=== PATIENT | male | born 1970 | race Caucasian/White ===

== ENCOUNTER 2017-01-28 13:51 | Observation (INO) | payer BC ==
[~2017-01-28] VITALS: Ht 188 cm; Wt 80.6 kg
[~2017-01-28 13:51] MED LIST: MOTRIN600 MG PO; ZOFRAN ODT4 MG PO
[2017-01-28 14:43] LABS: BASOPHIL COUNT 0.1 K/uL (0-0.1); EOSINOPHIL (%) 2.5 % (0-5); EOSINOPHIL COUNT 0.2 K/uL (0-0.3); HEMATOCRIT 42.9 % (38.0-50.0); IMMATURE GRANULOCYTE (%) 0.3 % (0.0-0.7); INSTRUMENT ABS NEUTROPHIL CT 5.4 K/uL; LYMPHOCYTE COUNT 1.6 K/uL (1.0-2.8); MCH 31.5 PG (29.0-34.0); MCHC 33.6 G/DL (30.0-36.0); MCV 93.9 FL (86-99); MEAN PLAT.VOLUME 9.6 uM^3 (9.0-12.4); MONOCYTE (%) 6.7 % (3-12); MONOCYTE COUNT 0.5 K/uL (0-0.8); NEUTROPHIL (%) 68.9 % (45-76); NEUTROPHIL COUNT 5.4 K/uL (1.8-6.4); PLATELET COUNT 216 K/uL (156-360); RBC DIS.WIDTH-CV 13.1 % (11.8-14.6); RBC DIS.WIDTH-SD 44.9 % (39-53); RED BLOOD COUNT 4.57 M/uL (4.00-5.50); WHITE BLOOD COUNT 7.9 K/uL (4.1-10.2)
[2017-01-28 15:02] LABS: CHLORIDE 108 mEq/L (99-109); POTASSIUM 4.1 mEq/L (3.7-5.4); SODIUM 139 mEq/L (136-147)
[2017-01-28 15:04] LABS: GLUCOSE 80 mg/dL (70-99); TROP-I INTERPRETATION NEGATIVE; TROPONIN-I < 0.01 ng/mL (0.0-0.30)
[2017-01-28 15:06] LABS: ANION GAP 9 MEQ/L (2-14)
[2017-01-28 15:08] LABS: GFR ESTIMATE (CALCULATED) > 59 mL/min/
[2017-01-28 15:09] LABS: UREA NITROGEN (BUN) 8 mg/dL (9-23)
[2017-01-28 20:34] VITALS: BP 130/70
[2017-01-28 21:05] LABS: TROP-I INTERPRETATION NEGATIVE; TROPONIN-I < 0.01 ng/mL (0.0-0.30)
[2017-01-28 23:36] VITALS: BP 108/72
[2017-01-29 00:46] LABS: ALKALINE PHOSPHATASE 65 IU/L (3-129); DIRECT BILIRUBIN 0.1 mg/dL (0.0-0.3); LIPASE 717 U/L (1.0-51.0); TOTAL BILIRUBIN 0.5 MG/DL (0.0-1.0)
[2017-01-29 03:33] VITALS: BP 106/66
[2017-01-29 04:21] LABS: D-DIMER ELISA < 150.00 ng/mLDDU (<230)
[2017-01-29 04:34] LABS: TROP-I INTERPRETATION NEGATIVE; TROPONIN-I < 0.01 ng/mL (0.0-0.30)
[2017-01-29 07:26] VITALS: BP 103/74
[2017-01-29 11:09] VITALS: BP 118/66
== END 2017-01-29 15:07 | disposition home or self-care (01) ==
LOC: EME 13:51 → 5WEST 19:12 → EDOF 19:12 → ENRESERV 19:17 → 5WEST 20:26 → ENPENDDIS 01-29 → 5WEST 01-29 15:07
PROVIDERS: Emergency Medicine; Hospitalist
DX: R07.9 Chest pain, unspecified (principal); I49.5 Sick sinus syndrome; Z82.49 Family history of ischemic heart disease and other diseases of the circulatory system; F17.210 Nicotine dependence, cigarettes, uncomplicated; N20.0 Calculus of kidney; Z88.0 Allergy status to penicillin
CPT/HCPCS: 71010; 74176; 80048; 80076; 83690; 84443; 84484; 85025; 85379; 93005; 99281; 99285; G0378; J1885; J2270

== ENCOUNTER 2017-06-10 00:46 | Emergency (ER) | payer OTHER, BC ==
[~2017-06-10] VITALS: Ht 188 cm; Wt 86.4 kg
[2017-06-10 01:22] LABS: BASOPHIL (%) 0.5 % (0-1); BASOPHIL COUNT 0.1 K/uL (0-0.1); EOSINOPHIL (%) 1.6 % (0-5); EOSINOPHIL COUNT 0.2 K/uL (0-0.3); HEMATOCRIT 39.4 % (38.0-50.0); HEMOGLOBIN 13.4 G/DL (12.5-16.6); IMMATURE GRANULOCYTE (%) 0.6 % (0.0-0.7); LYMPHOCYTE (%) 11.1 % (15-42); LYMPHOCYTE COUNT 1.2 K/uL (1.0-2.8); MONOCYTE (%) 5.8 % (3-12); MONOCYTE COUNT 0.6 K/uL (0-0.8); NEUTROPHIL (%) 80.4 % (45-76); NEUTROPHIL COUNT 8.8 K/uL (1.8-6.4); PLATELET COUNT 238 K/uL (156-360); RBC DIS.WIDTH-SD 44.9 % (39-53); RED BLOOD COUNT 4.19 M/uL (4.00-5.50); WHITE BLOOD COUNT 10.9 K/uL (4.1-10.2)
[2017-06-10 01:30] LABS: PTT 31.4 SEC (25-37)
[2017-06-10 01:31] LABS: CHLORIDE 105 mEq/L (99-109); POTASSIUM 4.1 mEq/L (3.7-5.4); SODIUM 136 mEq/L (136-147)
[2017-06-10 01:33] LABS: GLUCOSE 96 mg/dL (70-99)
[2017-06-10 01:37] LABS: CREATININE 0.9 mg/dL (0.6-1.3); GFR ESTIMATE (CALCULATED) > 59 mL/min/ (58.99-99999); UREA NITROGEN (BUN) 10 mg/dL (9-23)
[2017-06-10 04:48] VITALS: BP 125/73
== END 2017-06-10 04:52 | disposition short-term general hospital (02) ==
LOC: EME → EDBD 00:46 → TRA 00:46
PROVIDERS: Emergency Medicine
PROC: 0SS9XZZ Reposition Right Hip Joint, External Approach (ICD-10-PCS; principal; 2017-06-10)
DX: S32.411A Displaced fracture of anterior wall of right acetabulum, initial encounter for closed fracture (principal); S32.421A Displaced fracture of posterior wall of right acetabulum, initial encounter for closed fracture; S32.441A Displaced fracture of posterior column [ilioischial] of right acetabulum, initial encounter for closed fracture; S73.014A Posterior dislocation of right hip, initial encounter; W01.198A Fall on same level from slipping, tripping and stumbling with subsequent striking against other object, initial encounter; Y99.0 Civilian activity done for income or pay; F17.200 Nicotine dependence, unspecified, uncomplicated
CPT/HCPCS: 72192; 73501; 73502; 73552; 80048; 81003; 85025; 85610; 85730; 86850; 86900; 86901; 93005; J2270; J2405; J3010; J7030